=== PATIENT | male | born 1985 | race Caucasian/White ===

== ENCOUNTER 2017-02-13 13:46 | Emergency (ER) | payer MEDICAID ==
[2017-02-13] MEDS ORDERED: Ketorolac 60 MG/2 ML SDV IM ONE (14:07)
--- NOTE | 2017-02-13 14:19 | EDM.PDOC ---
ED HPI GENERAL MEDICAL PROBLEM - General Chief Complaint: Upper Extremity Injury/Pain Stated Complaint: LEFT HAND PAIN Time Seen by Provider: 02/13/17 13:56 Source of Information: Reports: Patient History Limitations: Reports: No Limitations - History of Present Illness INITIAL COMMENTS - FREE TEXT/NARRATIVE: Presents reporting left hand pain. The patient states that on Saturday, February 11, 2017 he pinched his left hand between a lawnmower and a car. Since that time he has had pain on the dorsal hand which increases with movement. He did not take Tylenol, NSAIDs or any other sors-mnu-iqmxdhb medications and did not use ice or elevation. He thought that the pain would improve but it has not and so he comes in seeking further evaluation. left hand Pain Score (Numeric/FACES): 8 - Related Data Allergies Allergy/AdvReac Type Severity Reaction Status Date / Time No Known Allergies Allergy Verified 02/13/17 13:52 Home Meds: Home Meds ARIPiprazole [Aripiprazole] 0 tab PO DAILY 09/10/16 [History] Mirtazapine 0 tab PO DAILY 09/10/16 [History] Amoxicillin 500 mg PO TID 02/13/17 [History] Metronidazole [IJD: metroNIDAZOLE] 500 mg PO TID 02/13/17 [History] Past Medical History - Past Health History Medical/Surgical History: Denies Medical/Surgical History HEENT History: Reports: None Cardiovascular History: Reports: None Respiratory History: Reports: None Gastrointestinal History: Reports: None Genitourinary History: Reports: None Musculoskeletal History: Reports: Other (See Below) Other Musculoskeletal History: knee injury Neurological History: Reports: None Psychiatric History: Reports: ADHD, Bipolar Hematologic History: Reports: None Immunologic History: Reports: None Oncologic (Cancer) History: Reports: None Dermatologic History: Reports: None - Infectious Disease History Infectious Disease History: Reports: None - Past Surgical History Head Surgeries/Procedures: Reports: None HEENT Surgical History: Reports: None Cardiovascular Surgical History: Reports: None Male Surgical History: Reports: None Oncologic Surgical History: Reports: None Social & Family History - Family History Family Medical History: Noncontributory - Tobacco Use Smoking Status *Q: Current Every Day Smoker Years of Tobacco use: 6 Packs/Tins Daily: 1 Used Tobacco, but Quit: No Second Hand Smoke Exposure: No - Alcohol Use Days Per Week of Alcohol Use: 1 Number of Drinks Per Day: 2 Total Drinks Per Week: 2 - Recreational Drug Use Recreational Drug Use: No Review of Systems - Review of Systems Review Of Systems: ROS reveals no pertinent complaints other than HPI. ED EXAM, GENERAL - Physical Exam Exam: See Below Exam Limited By: No Limitations General Appearance: Alert, No Apparent Distress Ears: Normal External Exam Nose: Normal Inspection Throat/Mouth: Normal Inspection Head: Atraumatic, Normocephalic Neck: Normal Inspection Respiratory/Chest: No Respiratory Distress, Lungs Clear Cardiovascular: Normal Peripheral Pulses, Regular Rate, Rhythm GI/Abdominal: Soft Extremities: Normal Inspection, Normal Range of Motion, Other (Left elbow, wrist full ROM without hesitation or limitation. Left dorsal hand with mild swelling but no lesion, erythema, ecchymosis, deformity. Tenderness about the dorsal hand but no crepitus. Full ROM of all digits with some limitation to full flexion due to pain. CMS intact to all digits distally. Radial pulse strong) Neurological: Alert, Oriented, Normal Cognition Psychiatric: Normal Affect, Normal Mood Skin Exam: Warm, Dry, Intact, Normal Color, No Rash Lymphatic: No Adenopathy Course - Vital Signs Last Recorded V/S: Last Vital Signs Temp 37.1 C 02/13/17 13:56 Pulse 99 02/13/17 13:56 Resp 18 02/13/17 13:56 BP 144/79 H 02/13/17 13:56 Pulse Ox 95 02/13/17 13:56 - Orders/Labs/Meds Meds: Medications Discontinued Medications Generic Name Dose Route Start Last Admin Trade Name Freq PRN Reason Stop Dose Admin Ketorolac Tromethamine 60 mg 02/13/17 14:07 02/13/17 14:19 Toradol IM 02/13/17 14:08 60 mg ONETIME ONE Administration Departure - Departure Time of Disposition: 14:49 Disposition: Home, Self-Care 01 Condition: Good Clinical Impression: Hand injury Qualifiers: Encounter type: initial encounter Laterality: left Qualified Code(s): S69.92XA - Unspecified injury of left wrist, hand and finger(s), initial encounter - Discharge Information Referrals: PCP,None [Primary Care Provider] - [facility] [Outside] [facility] [Outside] Forms: ED Department Discharge Additional Instructions: 1. Elevated left hand as much as possible. 2. Ice 20 minutes every 3-4 hours 3. Aleve 2 tabs and and 2 tabs pm or 2-3 ibuprofen every 8 hours as needed for pain. 4. Follow up in primary care.
--- NOTE | 2017-02-13 14:35 | CR ---
EXAMINATION: Left hand HISTORY: Pain COMPARISON: 07/12/2009 TECHNIQUE: 2 views FINDINGS/IMPRESSION: There is no acute osseous abnormality, dislocation, or fracture. Bone mineraliz ation is normal.
[2017-02-13 15:08] VITALS: BP 123/77
== END 2017-02-13 15:05 | disposition home or self-care (01) ==
LOC: MW.ED 13:46
DX: S69.92XA Unspecified injury of left wrist, hand and finger(s), initial encounter (principal); F17.210 Nicotine dependence, cigarettes, uncomplicated; Z79.899 Other long term (current) drug therapy; W31.89XA Contact with other specified machinery, initial encounter
CPT/HCPCS: 73120; 96372; 99283; J1885

== ENCOUNTER 2017-08-09 07:20 | Emergency (ER) | payer BC, MEDICAID, OTHER ==
[2017-08-09] MEDS ORDERED: Ketorolac 60 MG/2 ML SDV IM ONE (07:38)
--- NOTE | 2017-08-09 07:42 | EDM.PDOC ---
ED HPI GENERAL MEDICAL PROBLEM - General Chief Complaint: Upper Extremity Injury/Pain Stated Complaint: SLIPPED AND HURT VANESSA Time Seen by Provider: 08/09/17 07:31 - History of Present Illness INITIAL COMMENTS - FREE TEXT/NARRATIVE: HISTORY AND PHYSICAL: History of present illness: The patient is a 32-year-old male with no stated medical problems and says that he had a slip and fall at work 5 days ago landing on his proximal forearm near the elbow on the right side and he had pain initially but didn't think much of it and continued on with his work. He has not taken more than a few ibuprofen or Tylenol for the pain. He says he was at work recently doing a certain motion and felt a "popping sensation" in the elbow muscle area and the pain seemed to worsen and he feels more muscular rather than bony. He says with certain motions of his arm at his elbow the pain will worsen. He has no neurosensory changes in his hand and no distal wrist hand or finger pain and no proximal shoulder or humerus discomfort. With the original fall he did not hit his head pass out or black out and has no head neck or back pain Review of systems: As per history of present illness and below otherwise all systems reviewed and negative. Past medical history: As per history of present illness and as reviewed below otherwise noncontributory. Surgical history: As per history of present illness and as reviewed below otherwise noncontributory. Social history: No reported history of drug or alcohol abuse. Family history: As per history of present illness and as reviewed below otherwise noncontributory. Physical exam: Gen.: Well-developed well-nourished man who is nontoxic and speaking clearly and easily in the ED. Vital signs are noted by me HEENT: Atraumatic, normocephalic, negative for conjunctival pallor or scleral icterus, mucous membranes moist, throat clear, neck supple, nontender, trachea midline. There are no midline step-offs tenderness defects of the cervical spine Lungs: Clear to auscultation, breath sounds equal bilaterally, chest nontender. Heart: S1S2, regular rate and rhythm no overt murmurs Abdomen: Soft, nondistended, nontender. NABS Pelvis: Deferred Genitourinary: Deferred. Rectal: Deferred. Extremities: Atraumatic appearing throughout with full range of motion without any defects or deficits. On palpation of the right elbow area comfort at the proximal ulna without defects deformities swelling redness or ecchymosis in with certain motions of supination and pronation as well as flexion at the elbow the patient feels discomfort with palpation in the proximal muscle compartment there as well as in the ulnar groove. The legs are, negative for cords or calf pain. Neurovascular unremarkable. Neuro: Awake, alert, oriented. Cranial nerves II through XII unremarkable. Cerebellum unremarkable. Motor and sensory unremarkable throughout. Exam nonfocal. Back: There are no midline step-offs tenderness or defects of the thoracic or lumbar spine no posterior rib tenderness Diagnostics: X-ray left elbow Therapeutics: Toradol Impression: Right elbow injury persistent pain, contusion with musculoskeletal strain of the forearm Definitive disposition and diagnosis as appropriate pending reevaluation and review of above. right arm Pain Score (Numeric/FACES): 8 - Related Data Allergies Allergy/AdvReac Type Severity Reaction Status Date / Time No Known Allergies Allergy Verified 08/09/17 07:29 Home Meds: Home Meds . [No Known Home Meds] 08/09/17 [History] Past Medical History - Past Health History Medical/Surgical History: Denies Medical/Surgical History HEENT History: Reports: None Cardiovascular History: Reports: None Respiratory History: Reports: None Gastrointestinal History: Reports: None Genitourinary History: Reports: None Musculoskeletal History: Reports: Other (See Below) Other Musculoskeletal History: knee injury Neurological History: Reports: None Psychiatric History: Reports: ADHD, Bipolar Hematologic History: Reports: None Immunologic History: Reports: None Oncologic (Cancer) History: Reports: None Dermatologic History: Reports: None - Infectious Disease History Infectious Disease History: Reports: None - Past Surgical History Head Surgeries/Procedures: Reports: None HEENT Surgical History: Reports: None, Other (See Below) Other HEENT Surgeries/Procedures: Jaw pain Cardiovascular Surgical History: Reports: None Male Surgical History: Reports: None Oncologic Surgical History: Reports: None Social & Family History - Family History Family Medical History: Noncontributory - Tobacco Use Smoking Status *Q: Current Every Day Smoker Years of Tobacco use: 16 Packs/Tins Daily: 0.5 Used Tobacco, but Quit: No Second Hand Smoke Exposure: No - Alcohol Use Days Per Week of Alcohol Use: 1 Number of Drinks Per Day: 2 Total Drinks Per Week: 2 - Recreational Drug Use Recreational Drug Use: No Review of Systems - Review of Systems Review Of Systems: ROS reveals no pertinent complaints other than HPI. ED EXAM, GENERAL - Physical Exam Exam: See Below (See dictation) Course - Vital Signs Last Recorded V/S: Last Vital Signs Temp 37.1 C 08/09/17 07:30 Pulse 90 08/09/17 07:30 Resp 18 08/09/17 07:30 BP 136/89 08/09/17 07:30 Pulse Ox 96 08/09/17 07:30 - Orders/Labs/Meds Orders: Active Orders 24 hr Category Date Time Status Elbow Min 3V Rt [CR] Stat Exams 08/09/17 07:38 Taken Meds: Medications Discontinued Medications Generic Name Dose Route Start Last Admin Trade Name Isa PRN Reason Stop Dose Admin Ketorolac Tromethamine 60 mg 08/09/17 07:38 08/09/17 07:52 Toradol IM 08/09/17 07:39 60 mg ONETIME ONE Administration Departure - Departure Time of Disposition: 08:08 Disposition: Home, Self-Care 01 Condition: Good Clinical Impression: Injury of right elbow Qualifiers: Encounter type: initial encounter Qualified Code(s): S59.901A - Unspecified injury of right elbow, initial encounter - Discharge Information Referrals: Dwayne Rodriguez MD [Primary Care Provider] - Forms: ED Department Discharge Additional Instructions: The following information is given to patients seen in the emergency department who are being discharged to home. This information is to outline your options for follow-up care. We provide all patients seen in our emergency department with a follow-up referral. The need for follow-up, as well as the timing and circumstances, are variable depending upon the specifics of your emergency department visit. If you don't have a primary care physician on staff, we will provide you with a referral. We always advise you to contact your personal physician following an emergency department visit to inform them of the circumstance of the visit and for follow-up with them and/or the need for any referrals to a consulting specialist. The emergency department will also refer you to a specialist when appropriate. This referral assures that you have the opportunity for followup care with a specialist. All of these measure are taken in an effort to provide you with optimal care, which includes your followup. Under all circumstances we always encourage you to contact your private physician who remains a resource for coordinating your care. When calling for followup care, please make the office aware that this follow-up is from your recent emergency room visit. If for any reason you are refused follow-up, please contact the [facility] emergency department at and ask to speak to the emergency department charge nurse. [facility] Special[facility]--Orthopedic clinic Professional [address] [address] Try to ice the elbow area and the muscles after work and try to be careful doing motions that involve the elbow and that arm. Use medications as prescribed as well as [id number] Tylenol. Please call and follow-up with our orthopedics department or your provider at [facility] in the next few days for reevaluation and further care and return to ER as needed and as discussed. - My Orders Last 24 Hours: My Active Orders 08/09/17 07:38 Elbow Min 3V Rt [CR] Stat - Assessment/Plan Last 24 Hours: My Active Orders 08/09/17 07:38 Elbow Min 3V Rt [CR] Stat
[2017-08-09 08:41] VITALS: BP 133/96
--- NOTE | 2017-08-09 09:37 | CR ---
EXAM DATE: 08/09/17 PATIENT'S AGE: 32 Patient: TINO HINDS Facility: [place], [place] Site . Site : 1985 Study: XRay Extremity Right ELBOW [id number]/4/2018 7:55:45 AM Ordering Physician: Doctor Cristobal Final Report: INDICATION: TRAUMA/ FELL ON ICE INDICATION: Trauma. Fell on ice. TECHNIQUE: Right elbow, three views. COMPARISON: None FINDINGS: Bones: Alignment is normal. No fractures or bone lesions. Joint spaces: Unremarkable. Soft tissues: Unremarkable. IMPRESSION: There is no fracture identified at the right elbow. Dictated by Brijesh Hall MD @ 08/09/2017 8:00:57 AM Dictated by: Brijesh Hall MD @ 08/09/2017 08:01:07 (Electronic Signature) Report Signed by Proxy. MTDDelicia
== END 2017-08-09 08:18 | disposition home or self-care (01) ==
LOC: MW.ED 07:20
DX: S56.911A Strain of unspecified muscles, fascia and tendons at forearm level, right arm, initial encounter (principal); S50.11XA Contusion of right forearm, initial encounter; S59.901A Unspecified injury of right elbow, initial encounter; F17.210 Nicotine dependence, cigarettes, uncomplicated; W01.0XXA Fall on same level from slipping, tripping and stumbling without subsequent striking against object, initial encounter; Y99.0 Civilian activity done for income or pay
CPT/HCPCS: 73080; 96372; 99283; J1885

== ENCOUNTER 2017-09-21 07:21 | Emergency (ER) | payer BC ==
[2017-09-21] MEDS ORDERED: Ketorolac 30 MG/ML SDV IM ONE (07:32)
--- NOTE | 2017-09-21 07:35 | EDM.PDOC ---
ED HPI GENERAL MEDICAL PROBLEM - General Stated Complaint: LEFT SHOULDER PAIN Time Seen by Provider: 09/21/17 07:28 - History of Present Illness INITIAL COMMENTS - FREE TEXT/NARRATIVE: HISTORY AND PHYSICAL: History of present illness: Patient 32-year-old male presents with concern of intermittent left shoulder pain he's been seen in the past for this discomfort and returns today with an episode Bitts worsened he denies direct trauma or other concern he has not sought follow-up as outpatient with prior episodes. He has had prior ER visits for multiple different complaints including chest and shoulder pain. He denies shortness of breath palpitations nausea vomiting drugs or other concern Review of systems: As per history of present illness and below otherwise all systems reviewed and negative. Past medical history: As per history of present illness and as reviewed below otherwise noncontributory. Surgical history: As per history of present illness and as reviewed below otherwise noncontributory. Social history: No reported history of drug or alcohol abuse. Family history: As per history of present illness and as reviewed below otherwise noncontributory. Physical exam: HEENT: Atraumatic, normocephalic, pupils reactive, negative for conjunctival pallor or scleral icterus, mucous membranes moist, throat clear, neck supple, nontender, trachea midline. Lungs: Clear to auscultation, breath sounds equal bilaterally, chest nontender. Heart: S1S2, regular, negative for clicks, rubs, or JVD. Abdomen: Soft, nondistended, nontender. Negative for masses or hepatosplenomegaly. Negative for costovertebral tenderness. Pelvis: Stable nontender. Genitourinary: Deferred. Rectal: Deferred. Extremities: Left shoulder has limited range of motion secondary pain is no gross deformity no crepitation a point tenderness E medicine neurovascular exam are unremarkable Neuro: Awake, alert, oriented. Cranial nerves II through XII unremarkable. Cerebellum unremarkable. Motor and sensory unremarkable throughout. Exam nonfocal. Diagnostics: X-ray left shoulder Therapeutics: Sling left shoulder Toradol 30 mg IM Impression: 1 left shoulder pain Definitive disposition and diagnosis as appropriate pending reevaluation and review of above. - Related Data Allergies Allergy/AdvReac Type Severity Reaction Status Date / Time No Known Allergies Allergy Verified 08/09/17 07:29 Home Meds: Home Meds . [No Known Home Meds] 01/04/18 [History] Past Medical History - Past Health History Medical/Surgical History: Denies Medical/Surgical History HEENT History: Reports: None Cardiovascular History: Reports: None Respiratory History: Reports: None Gastrointestinal History: Reports: None Genitourinary History: Reports: None Musculoskeletal History: Reports: Other (See Below) Other Musculoskeletal History: knee injury Neurological History: Reports: None Psychiatric History: Reports: ADHD, Bipolar Hematologic History: Reports: None Immunologic History: Reports: None Oncologic (Cancer) History: Reports: None Dermatologic History: Reports: None - Infectious Disease History Infectious Disease History: Reports: None - Past Surgical History Head Surgeries/Procedures: Reports: None HEENT Surgical History: Reports: None, Other (See Below) Other HEENT Surgeries/Procedures: Jaw pain Cardiovascular Surgical History: Reports: None Male Surgical History: Reports: None Oncologic Surgical History: Reports: None Social & Family History - Family History Family Medical History: Noncontributory - Tobacco Use Smoking Status *Q: Current Every Day Smoker Years of Tobacco use: 16 Packs/Tins Daily: 0.5 Used Tobacco, but Quit: No Second Hand Smoke Exposure: No - Alcohol Use Days Per Week of Alcohol Use: 1 Number of Drinks Per Day: 2 Total Drinks Per Week: 2 - Recreational Drug Use Recreational Drug Use: No ED ROS GENERAL - Review of Systems Review Of Systems: ROS reveals no pertinent complaints other than HPI. ED EXAM, GENERAL - Physical Exam Exam: See Below (See dictation) Course - Orders/Labs/Meds Orders: Active Orders 24 hr Category Date Time Status Shoulder Comp Lt [CR] Stat Exams 09/21/17 07:32 Ordered Ketorolac [Toradol] Med 09/21/17 07:32 Once 30 mg IM ONETIME ONE Departure - Departure Time of Disposition: 07:34 Disposition: Home, Self-Care 01 Condition: Good Clinical Impression: Shoulder pain - Discharge Information Referrals: Dwayne Rodriguez MD [Primary Care Provider] - Additional Instructions: The following information is given to patients seen in the emergency department who are being discharged to home. This information is to outline your options for follow-up care. We provide all patients seen in our emergency department with a follow-up referral. The need for follow-up, as well as the timing and circumstances, are variable depending upon the specifics of your emergency department visit. If you don't have a primary care physician on staff, we will provide you with a referral. We always advise you to contact your personal physician following an emergency department visit to inform them of the circumstance of the visit and for follow-up with them and/or the need for any referrals to a consulting specialist. The emergency department will also refer you to a specialist when appropriate. This referral assures that you have the opportunity for followup care with a specialist. All of these measure are taken in an effort to provide you with optimal care, which includes your followup. Under all circumstances we always encourage you to contact your private physician who remains a resource for coordinating your care. When calling for followup care, please make the office aware that this follow-up is from your recent emergency room visit. If for any reason you are refused follow-up, please contact the [facility] emergency department at and asked to speak to the emergency department charge nurse. [facility] Specialty Care - Orthopedic Clinic [address], [address] [place] [address] I'll schedule routine appointment with orthopedic clinic above Ultram as prescribed sling as directed return as needed as discussed - My Orders Last 24 Hours: My Active Orders 09/21/17 07:32 Shoulder Comp Lt [CR] Stat Ketorolac [Toradol] 30 mg IM ONETIME ONE - Assessment/Plan Last 24 Hours: My Active Orders 09/21/17 07:32 Shoulder Comp Lt [CR] Stat Ketorolac [Toradol] 30 mg IM ONETIME ONE
[2017-09-21 07:40] VITALS: BP 134/86
--- NOTE | 2017-09-21 17:12 | CR ---
EXAM DATE: 09/21/17 PATIENT'S AGE: 32 Patient: TINO HINDS Facility: [place], [place] Site . Site : 1985 Study: XRay Shoulder Left [id number]/16/2018 8:26:53 AM Ordering Physician: Jesusita Saul Final Report: HISTORY: Pain. FINDINGS: Three views of the left shoulder demonstrate normal alignment. There is maintenance of the AC and glenohumeral joints. No soft tissue calcification, fracture or dislocation. IMPRESSION: No bony abnormality within the left shoulder. Dictated by Yumiko Redding MD @ 09/21/2017 8:41:05 AM Dictated by: Yumiok Redding MD @ 09/21/2017 08:41:10 (Electronic Signature) Report Signed by Proxy. [facility] CENTERDelicia
== END 2017-09-21 09:13 | disposition home or self-care (01) ==
LOC: MW.ED 07:21
DX: M25.512 Pain in left shoulder (principal); F17.210 Nicotine dependence, cigarettes, uncomplicated
CPT/HCPCS: 73030; 96372; 99283; J1885

== ENCOUNTER 2017-12-19 13:22 | Emergency (ER) | payer BC ==
--- NOTE | 2017-12-19 13:28 | EDM.PDOC ---
ED HPI GENERAL MEDICAL PROBLEM - General Chief Complaint: Upper Extremity Injury/Pain Stated Complaint: RT ARM HURTS Time Seen by Provider: 12/19/17 13:23 Source of Information: Reports: Patient History Limitations: Reports: No Limitations - History of Present Illness INITIAL COMMENTS - FREE TEXT/NARRATIVE: HISTORY AND PHYSICAL: History of present illness: Patient is a 32-year-old male who presents to the emergency room with complaints of right wrist and all forearm pain since yesterday. He states he was lifting multiple boxes yesterday and has progressively had increased pain and difficulty grasping since that time. He denies any trauma, injury or falls. No previous problems with his right upper extremity. Denies any numbness or tingling to the affected extremity. Review of systems: As per history of present illness and below otherwise all systems reviewed and negative. Past medical history: As per history of present illness and as reviewed below otherwise noncontributory. Surgical history: As per history of present illness and as reviewed below otherwise noncontributory. Social history: No reported history of drug or alcohol abuse. Family history: As per history of present illness and as reviewed below otherwise noncontributory. Physical exam: General: Well-developed and well-nourished 32-year-old male. Alert and oriented. Nontoxic appearing and in no acute distress. HEENT: Atraumatic, normocephalic, pupils equal and reactive bilaterally, negative for conjunctival pallor or scleral icterus, mucous membranes moist, throat clear, neck supple, nontender, trachea midline. No drooling or trismus noted. No meningeal signs Lungs: Clear to auscultation, breath sounds equal bilaterally, chest nontender. Heart: S1S2, regular rate and rhythm without overt murmur Abdomen: Soft, nondistended, nontender. Negative for masses or hepatosplenomegaly. Negative for costovertebral tenderness. Pelvis: Stable nontender. Genitourinary: Deferred. Rectal: Deferred. Skin: Skin is soiled with work materials. Otherwise intact, warm, dry. No lesions or rashes noted. Extremities: Moves all extremities per self without difficulty or deficits, weekend grasp noted to right hand. He is able to clench his fist but states it is too painful to close it tightly. No tenderness with palpation of the right hand, wrist, forearm or elbow. Strong radial pulse. Capillary refill less than 3 seconds. Neurovascular unremarkable. Neuro: Awake, alert, oriented. Cranial nerves II through XII unremarkable. Cerebellum unremarkable. Motor and sensory unremarkable throughout. Exam nonfocal. Notes: Denies any injury or trauma. Patient states he has difficulty holding a hammer. It sounds like he has possibly an overuse syndrome, as he is frequently turning dials, rolling pipes, and hammering. We'll x-ray the forearm, as the distribution technician states that she can get the wrist and elbow in this image. X-ray shows no effusion, dislocation or fractures. Information was shared with the patient. We discussed the limitations of x-ray and the need for follow-up. We' ll provide patient with a cock-up wrist splint. Encouraged him to follow-up with the orthopedic provider in the next couple days. Supportive care measures reviewed. He voices understanding and is agreeable to plan of care. Denies any further questions at this time Limitied amount of Diclofenac prescribed. Diagnostics: Xray Therapeutics: Ice, cock-up wrist splint Impression: Right wrist pain Plan: 1. Rest, ice, elevate the affected extremity. Please wear the splint for the next several days for comfort. 2. Tylenol and/or Ibuprofen as needed for pain management. 3. Follow up with orthopedics in the next 1-2 days. Return to the ED as needed and as discussed. Definitive disposition and diagnosis as appropriate pending reevaluation and review of above. Duration: Day(s): Location: Reports: Upper Extremity, Right right arm Pain Score (Numeric/FACES): 5 - Related Data Allergies Allergy/AdvReac Type Severity Reaction Status Date / Time No Known Allergies Allergy Verified 12/19/17 13:30 Home Meds: Home Meds Acetaminophen [Acetaminophen Extra Strength] 1,000 mg PO ASDIRECTED PRN [History] Ibuprofen 600 mg PO ASDIRECTED PRN 09/21/17 [History] Past Medical History - Past Health History Medical/Surgical History: Denies Medical/Surgical History HEENT History: Reports: None Cardiovascular History: Reports: None Respiratory History: Reports: None Gastrointestinal History: Reports: None Genitourinary History: Reports: None Musculoskeletal History: Reports: Other (See Below) Other Musculoskeletal History: knee injury Neurological History: Reports: None Psychiatric History: Reports: ADHD, Bipolar Hematologic History: Reports: None Immunologic History: Reports: None Oncologic (Cancer) History: Reports: None Dermatologic History: Reports: None - Infectious Disease History Infectious Disease History: Reports: None - Past Surgical History Head Surgeries/Procedures: Reports: None HEENT Surgical History: Reports: None, Other (See Below) Other HEENT Surgeries/Procedures: Jaw pain Cardiovascular Surgical History: Reports: None Male Surgical History: Reports: None Oncologic Surgical History: Reports: None Social & Family History - Family History Family Medical History: Noncontributory - Caffeine Use Caffeine Use: Reports: Energy Drinks Review of Systems - Review of Systems Review Of Systems: ROS reveals no pertinent complaints other than HPI. (See dictation) ED EXAM, GENERAL - Physical Exam Exam: See Below (See dictation) Course - Vital Signs Last Recorded V/S: Last Vital Signs Temp 97.6 F 12/19/17 13:31 Pulse 99 12/19/17 13:31 Resp 18 12/19/17 13:31 BP 143/83 H 12/19/17 13:31 Pulse Ox 94 L 12/19/17 13:31 Departure - Departure Time of Disposition: 14:25 Disposition: Home, Self-Care 01 Clinical Impression: Right wrist pain - Discharge Information Instructions: Wrist Pain, Adult, [id number] Referrals: PCP,None [Primary Care Provider] - Forms: ED Department Discharge Additional Instructions: The following information is given to patients seen in the emergency department who are being discharged to home. This information is to outline your options for follow-up care. We provide all patients seen in our emergency department with a follow-up referral. The need for follow-up, as well as the timing and circumstances, are variable depending upon the specifics of your emergency department visit. If you don't have a primary care physician on staff, we will provide you with a referral. We always advise you to contact your personal physician following an emergency department visit to inform them of the circumstance of the visit and for follow-up with them and/or the need for any referrals to a consulting specialist. The emergency department will also refer you to a specialist when appropriate. This referral assures that you have the opportunity for follow-up care with a specialist. All of these measure are taken in an effort to provide you with optimal care, which includes your follow-up. Under all circumstances we always encourage you to contact your private physician who remains a resource for coordinating your care. When calling for follow-up care, please make the office aware that this follow-up is from your recent emergency room visit. If for any reason you are refused follow-up, please contact the [facility] Emergency Department at and asked to speak to the emergency department charge nurse. [facility] Primary Care [address], [place] [address] [facility] Special[facility] - [facility] Professional Building [address] [place] [address], [address] [place] [address] 1. Rest, ice, elevate the affected extremity. Please wear the splint for the next several days for comfort. 2. Tylenol and/or Ibuprofen as needed for pain management. 3. Follow up with orthopedics in the next 1-2 days. Return to the ED as needed and as discussed.
--- NOTE | 2017-12-19 14:14 | CR ---
EXAMINATION: Right forearm HISTORY: Pain COMPARISON: None TECHNIQUE: 2 views FINDINGS/IMPRESSION: There is no acute osseous abnormality, elbow joint effusion, dislocation, or fra cture. Bone mineralization and joint spaces appear normal. The radial carpal and radiocapitellar alig nments are preserved.
[2017-12-19 14:38] VITALS: BP 138/90
== END 2017-12-19 14:36 | disposition home or self-care (01) ==
LOC: MW.ED 13:22
DX: M25.531 Pain in right wrist (principal)
CPT/HCPCS: 73090-26-RT; 73090-RT; 99283

== ENCOUNTER 2018-01-16 09:39 | Emergency (ER) | payer BC ==
[2018-01-16] MEDS ORDERED: Aspirin 81 MG Tab.Chew PO ONE (09:44)
--- NOTE | 2018-01-16 09:46 | EDM.PDOC ---
ED HPI GENERAL MEDICAL PROBLEM - General Chief Complaint: Chest Pain Stated Complaint: CHEST PAIN Time Seen by Provider: 01/16/18 09:45 Source of Information: Reports: Patient - History of Present Illness INITIAL COMMENTS - FREE TEXT/NARRATIVE: HISTORY AND PHYSICAL: History of present illness: [Patient presents with chest wall pain along left sternal border as well as involving left pectoralis major can reproduce symptoms with palpation along the border as well as major and minor pectoralis full extension of his arm reproduces symptoms on the left pain is 4 out of 10 worse with deep breaths and moving his left arm, he works in a pipe yard moving heavy pipe likely contributes It is noted he is been in several times over the last 6 months for similar symptoms He hasassociated diaphoresis shortness of breath no radiation to neck or jaw no fever nausea vomiting chills sweats no shortness breath headache dizziness palpitation no bowel or urine symptoms ] Review of systems: As per history of present illness and below otherwise all systems reviewed and negative. Past medical history: As per history of present illness and as reviewed below otherwise noncontributory. Surgical history: As per history of present illness and as reviewed below otherwise noncontributory. Social history: No reported history of drug or alcohol abuse. Family history: As per history of present illness and as reviewed below otherwise noncontributory. Physical exam: HEENT: Atraumatic, normocephalic, pupils reactive, negative for conjunctival pallor or scleral icterus, mucous membranes moist, throat clear, neck supple, nontender, trachea midline. Lungs: Clear to auscultation, breath sounds equal bilaterally, chest nontender. Heart: S1S2, regular, negative for clicks, rubs, or JVD. Abdomen: Soft, nondistended, nontender. Negative for masses or hepatosplenomegaly. Negative for costovertebral tenderness. Pelvis: Stable nontender. Genitourinary: Deferred. Rectal: Deferred. Extremities: Atraumatic, negative for cords or calf pain. Neurovascular unremarkable. Neuro: Awake, alert, oriented. Cranial nerves II through XII unremarkable. Cerebellum unremarkable. Motor and sensory unremarkable throughout. Exam nonfocal. Diagnostics: [CBC CMP troponin lipase EKG Chest 1 view ] Therapeutics: [ aspirin 324 mg chewable ]Proton X Rest ice ibuprofen Follow-up with primary care Impression: [ Chest wall pain ] Definitive disposition and diagnosis as appropriate pending reevaluation and review of above. Chest Pain Score (Numeric/FACES): 9 - Related Data Allergies Allergy/AdvReac Type Severity Reaction Status Date / Time No Known Allergies Allergy Verified 01/16/18 09:45 Home Meds: Home Meds Acetaminophen [Acetaminophen Extra Strength] 1,000 mg PO ASDIRECTED PRN [History] Ibuprofen 600 mg PO ASDIRECTED PRN 09/21/17 [History] Past Medical History - Past Health History Medical/Surgical History: Denies Medical/Surgical History HEENT History: Reports: None Cardiovascular History: Reports: None Respiratory History: Reports: None Gastrointestinal History: Reports: None Genitourinary History: Reports: None Musculoskeletal History: Reports: Other (See Below) Other Musculoskeletal History: knee injury Neurological History: Reports: None Psychiatric History: Reports: ADHD, Bipolar Endocrine/Metabolic History: Reports: None Hematologic History: Reports: None Immunologic History: Reports: None Oncologic (Cancer) History: Reports: None Dermatologic History: Reports: None - Infectious Disease History Infectious Disease History: Reports: None - Past Surgical History Head Surgeries/Procedures: Reports: None HEENT Surgical History: Reports: None, Other (See Below) Other HEENT Surgeries/Procedures: Jaw pain Cardiovascular Surgical History: Reports: None Male Surgical History: Reports: None Oncologic Surgical History: Reports: None Social & Family History - Family History Family Medical History: Noncontributory - Caffeine Use Caffeine Use: Reports: Energy Drinks ED ROS GENERAL - Review of Systems Review Of Systems: See Below ED EXAM, GENERAL - Physical Exam Exam: See Below Course - Vital Signs Last Recorded V/S: Last Vital Signs Temp 98.5 F 01/16/18 09:46 Pulse 78 01/16/18 09:46 Resp 16 01/16/18 09:46 BP 132/86 01/16/18 09:46 Pulse Ox 97 01/16/18 09:46 - Orders/Labs/Meds Orders: Active Orders 24 hr Category Date Time Status EKG Documentation Completion [RC] STAT Care 01/16/18 09:45 Active UA W/MICROSCOPIC [URIN] Stat Lab 01/16/18 09:57 Ordered Labs: Laboratory Tests 01/16/18 01/16/18 01/16/18 Range/Units 09:48 09:48 09:57 WBC 7.54 (4.0-11.0) K/uL RBC 5.38 (4.50-5.90) M/uL Hgb 16.4 (13.0-17.0) g/dL Hct 46.6 (38.0-50.0) % MCV 86.6 (80.0-98.0) fL MCH 30.5 (27.0-32.0) pg MCHC 35.2 (31.0-37.0) g/dL RDW Std Deviation 41.7 (28.0-62.0) fl RDW Coeff of Brinda 13 (11.0-15.0) % Plt Count 234 (150-400) K/uL MPV 10.50 (7.40-12.00) fL Neut % (Auto) 54.8 (48.0-80.0) % Lymph % (Auto) 30.4 (16.0-40.0) % [place] % (Auto) 12.9 (0.0-15.0) % Eos % (Auto) 1.5 (0.0-7.0) % Baso % (Auto) 0.4 (0.0-1.5) % Neut # (Auto) 4.1 (1.4-5.7) K/uL Lymph # (Auto) 2.3 (0.6-2.4) K/uL [place] # (Auto) 1.0 H (0.0-0.8) K/uL Eos # (Auto) 0.1 (0.0-0.7) K/uL Baso # (Auto) 0.0 (0.0-0.1) K/uL Nucleated RBC % 0.0 /100WBC Nucleated RBCs # 0 K/uL Sodium 137 (136-148) mmol/L Potassium 4.1 (3.5-5.1) mmol/L Chloride 104 (98-107) mmol/L Carbon Dioxide 26.2 (21.0-32.0) mmol/L BUN 15 (7.0-18.0) mg/dL Creatinine 1.2 (0.8-1.3) mg/dL Est Cr Clr Drug Dosing 94.13 mL/min Estimated GFR (MDRD) > 60.0 ml/min Glucose 105 (74-106) mg/dL Calcium 9.6 (8.5-10.1) mg/dL Total Bilirubin 0.3 (0.2-1.0) mg/dL AST 34 (15-37) IU/L ALT 47 (14-63) IU/L Alkaline Phosphatase 77 (46-116) U/L Total Protein 7.9 (6.4-8.2) g/dL Albumin 4.3 (3.4-5.0) g/dL Globulin 3.6 H (2.0-3.5) g/dL Albumin/Globulin Ratio 1.2 L (1.3-2.8) Lipase 96 (73-393) U/L Urine Color YELLOW Urine Appearance CLEAR Urine pH 5.5 (5.0-8.0) Ur Specific [place] 1.020 (1.001-1.035) Urine Protein NEGATIVE (NEGATIVE) mg/dL Urine Glucose (UA) NEGATIVE (NEGATIVE) mg/dL Urine Ketones NEGATIVE (NEGATIVE) mg/dL Urine Occult Blood NEGATIVE (NEGATIVE) Urine Nitrite NEGATIVE (NEGATIVE) Urine Bilirubin NEGATIVE (NEGATIVE) Urine Urobilinogen 0.2 (<2.0) EU/dL Ur Leukocyte Esterase NEGATIVE (NEGATIVE) Urine RBC 0-2 (0-2/HPF) Urine WBC 0-2 (0-5/HPF) Ur Epithelial Cells RARE (NONE-FEW) Urine Bacteria RARE (NEGATIVE) Meds: Medications Discontinued Medications Generic Name Dose Route Start Last Admin Trade Name Isa PRN Reason Stop Dose Admin Aspirin 324 mg 01/16/18 09:44 01/16/18 10:01 Aspirin PO 01/16/18 09:45 324 mg ONETIME ONE Administration Pantoprazole Sodium 80 mg 01/16/18 10:19 Protonix Iv IVPUSH 01/16/18 10:20 .BOLUS ONE Departure - Departure Time of Disposition: 10:41 Disposition: Home, Self-Care 01 Condition: Good Clinical Impression: Chest wall pain, Muscle spasm - Discharge Information Referrals: PCP,None [Primary Care Provider] - Forms: ED Department Discharge Additional Instructions: Rest Ice 20 minute intervals 3 times daily Ibuprofen 400 mg 3 times daily 7-10 days Follow-up with primary care in approximately 2 weeks [facility] - Primary Care [address] [place] [id number] The following information is given to patients seen in the emergency department who are being discharged to home. This information is to outline your options for follow-up care. We provide all patients seen in our emergency department with a follow-up referral. The need for follow-up, as well as the timing and circumstances, are variable depending upon the specifics of your emergency department visit. If you don't have a primary care physician on staff, we will provide you with a referral. We always advise you to contact your personal physician following an emergency department visit to inform them of the circumstance of the visit and for follow-up with them and/or the need for any referrals to a consulting specialist. The emergency department will also refer you to a specialist when appropriate. This referral assures that you have the opportunity for follow-up care with a specialist. All of these measure are taken in an effort to provide you with optimal care, which includes your follow-up. Under all circumstances we always encourage you to contact your private physician who remains a resource for coordinating your care. When calling for follow-up care, please make the office aware that this follow-up is from your recent emergency room visit. If for any reason you are refused follow-up, please contact the [facility] emergency department at and asked to speak to the emergency department charge nurse. - My Orders Last 24 Hours: My Active Orders 01/16/18 09:45 EKG Documentation Completion [RC] STAT 01/16/18 09:57 UA W/MICROSCOPIC [URIN] Stat - Assessment/Plan Last 24 Hours: My Active Orders 01/16/18 09:45 EKG Documentation Completion [RC] STAT 01/16/18 09:57 UA W/MICROSCOPIC [URIN] Stat
[2018-01-16] MEDS ORDERED: Pantoprazole 40 MG Vial IVPUSH ONE (10:19)
--- NOTE | 2018-01-16 10:23 | CR ---
EXAMINATION: Portable chest radiograph. HISTORY: Shortness of breath. FINDINGS: The trachea is midline. The cardiomediastinal silhouette is within normal limits. No pulmonary infilt rates, effusions or pneumothorax. Osseous structures appear unremarkable. IMPRESSION: No acute cardiopulmonary process.
[2018-01-16 10:24] LABS: CHLORIDE,CL 104 mmol/L (98-107); SODIUM,NA 137 mmol/L (136-148)
[2018-01-16 11:35] VITALS: BP 134/91
== END 2018-01-16 11:02 | disposition home or self-care (01) ==
LOC: MW.ED 09:39
DX: R07.89 Other chest pain (principal); M62.838 Other muscle spasm
CPT/HCPCS: 36415; 71045; 80053; 81001; 83690; 85025; 96374; 99285; A9270; C9113; 99283

== ENCOUNTER 2018-11-10 12:14 | Emergency (ER) | payer BC ==
[2018-11-10 12:27] VITALS: BP 160/98
[2018-11-10] MEDS ORDERED: Cyclobenzaprine 10 MG Tab PO ONE (13:27)
[2018-11-10] MEDS ORDERED: traMADol 50 MG Tab PO ONE (13:27)
--- NOTE | 2018-11-10 13:35 | EDM.PDOC ---
ED HPI GENERAL MEDICAL PROBLEM - General Chief Complaint: Genitourinary Problem Stated Complaint: UNABLE TO USE THE BATHROOM Time Seen by Provider: 11/10/18 12:33 Source of Information: Reports: Patient History Limitations: Reports: No Limitations - History of Present Illness INITIAL COMMENTS - FREE TEXT/NARRATIVE: History of present illness: []Patient has had low back pain radiating to his right hip for 4 days. He is having difficulty urinating and having bowel movements but is not incontinent. Patient is ambulatory. Patient is followed by Dr. Rodriguez but has not followed up. Denies any acute trauma or injury that may have caused this pain Review of systems: As per history of present illness and below otherwise all systems reviewed and negative. Past medical history: As per history of present illness and as reviewed below otherwise noncontributory. Surgical history: As per history of present illness and as reviewed below otherwise noncontributory. Social history: No reported history of drug or alcohol abuse. Family history: As per history of present illness and as reviewed below otherwise noncontributory. Physical exam: General: Well developed, well nourished in NAD HEENT: Atraumatic, normocephalic, pupils reactive, negative for conjunctival pallor or scleral icterus, mucous membranes moist, throat clear, neck supple, nontender, trachea midline. Lungs: Clear to auscultation, breath sounds equal bilaterally, chest nontender. Heart: S1S2, regular, negative for clicks, rubs, or JVD. Abdomen: NABS, Soft, nondistended, nontender. Negative for masses or hepatosplenomegaly. Negative for costovertebral tenderness. Pelvis: Stable nontender. Genitourinary: Deferred. Rectal: Deferred. Extremities: Atraumatic, negative for cords or calf pain. Neurovascular unremarkable. Neuro: Awake, alert, oriented. Cranial nerves II through XII unremarkable. Cerebellum unremarkable. Motor and sensory unremarkable throughout. Exam nonfocal. Straight leg raise negative Skin:warm and dry Diagnostics: none Therapeutics: Tramadol, norflex ED Course: Stable Impression: Acute back pain with right sciatica Prescriptions: Tramadol, Flexeril Plan: Take meds as directed, follow up with your primary care physician, return to ER if symptoms worsen or change. Definitive disposition and diagnosis as appropriate pending reevaluation and review of above. Rectal Pain Score (Numeric/FACES): 10 - Related Data Allergies Allergy/AdvReac Type Severity Reaction Status Date / Time No Known Allergies Allergy Verified 11/10/18 12:29 Home Meds: Home Meds Cyclobenzaprine [Flexeril] 10 mg PO BID PRN #12 tab 11/10/18 [Rx] Divalproex Sodium 500 mg PO BID 11/10/18 [History] traMADol HCl [Tramadol HCl] 50 mg PO Q6H PRN #16 tablet 11/10/18 [Rx] Past Medical History - Past Health History Medical/Surgical History: Denies Medical/Surgical History HEENT History: Reports: None Cardiovascular History: Reports: None Respiratory History: Reports: None Gastrointestinal History: Reports: None Genitourinary History: Reports: None Musculoskeletal History: Reports: Other (See Below) Other Musculoskeletal History: knee injury Neurological History: Reports: None Psychiatric History: Reports: ADHD, Bipolar Endocrine/Metabolic History: Reports: None Hematologic History: Reports: None Immunologic History: Reports: None Oncologic (Cancer) History: Reports: None Dermatologic History: Reports: None - Infectious Disease History Infectious Disease History: Reports: None - Past Surgical History Head Surgeries/Procedures: Reports: None HEENT Surgical History: Reports: None, Other (See Below) Other HEENT Surgeries/Procedures: Jaw pain Cardiovascular Surgical History: Reports: None Male Surgical History: Reports: None Oncologic Surgical History: Reports: None Social & Family History - Family History Family Medical History: Noncontributory - Tobacco Use Smoking Status *Q: Current Every Day Smoker Years of Tobacco use: 17 Packs/Tins Daily: 0.5 - Caffeine Use Caffeine Use: Reports: Coffee, Soda, Tea - Recreational Drug Use Recreational Drug Use: No ED ROS GENERAL - Review of Systems Review Of Systems: ROS reveals no pertinent complaints other than HPI. ED EXAM,LOWER BACK PAIN/INJURY - Physical Exam Exam: See Below (See history of present illness) Course - Vital Signs Last Recorded V/S: Last Vital Signs Temp 97.6 F 11/10/18 12:26 Pulse 109 H 11/10/18 12:26 Resp 18 11/10/18 12:26 BP 160/98 H 11/10/18 12:26 Pulse Ox 98 11/10/18 12:26 - Orders/Labs/Meds Orders: Active Orders 24 hr Category Date Time Status CULTURE URINE [RM] Routine Lab 11/10/18 12:56 Received Labs: Laboratory Tests 11/10/18 Range/Units 12:56 Urine Color YELLOW Urine Appearance CLEAR Urine pH 6.0 (5.0-8.0) Ur Specific [place] 1.025 (1.001-1.035) Urine Protein NEGATIVE (NEGATIVE) mg/dL Urine Glucose (UA) NEGATIVE (NEGATIVE) mg/dL Urine Ketones 15 H (NEGATIVE) mg/dL Urine Occult Blood NEGATIVE (NEGATIVE) Urine Nitrite NEGATIVE (NEGATIVE) Urine Bilirubin NEGATIVE (NEGATIVE) Urine Urobilinogen 0.2 (<2.0) EU/dL Ur Leukocyte Esterase NEGATIVE (NEGATIVE) Urine RBC 2-4 (0-2/HPF) Urine WBC 1-3 (0-5/HPF) Ur Epithelial Cells FEW (NONE-FEW) Urine Bacteria FEW (NEGATIVE) Meds: Medications Discontinued Medications Generic Name Dose Route Start Last Admin Trade Name Freq PRN Reason Stop Dose Admin Orphenadrine Citrate 60 mg 11/10/18 13:30 11/10/18 13:49 Norflex IM 60 mg Q12H LI Administration Tramadol HCl 100 mg 11/10/18 13:27 11/10/18 13:50 Ultram PO 11/10/18 13:28 100 mg ONETIME ONE Administration Departure - Departure Time of Disposition: 14:10 Disposition: Home, Self-Care 01 Condition: Good Clinical Impression: Low back pain with sciatica Qualifiers: Chronicity: acute Back pain laterality: right Sciatica laterality: sciatica of right side Qualified Code(s): M54.41 - Lumbago with sciatica, right side - Discharge Information *PRESCRIPTION DRUG MONITORING PROGRAM REVIEWED*: No *COPY OF PRESCRIPTION DRUG MONITORING REPORT IN PATIENT TORO: No Prescriptions: Cyclobenzaprine [Flexeril] 10 mg PO BID PRN #12 tab PRN Reason: Pain traMADol HCl [Tramadol HCl] 50 mg PO Q6H PRN #16 tablet PRN Reason: Pain Instructions: Sciatica Referrals: PCP,Unknown [Primary Care Provider] - Forms: ED Department Discharge - My Orders Last 24 Hours: My Active Orders 11/10/18 12:56 CULTURE URINE [RM] Routine - Assessment/Plan Last 24 Hours: My Active Orders 11/10/18 12:56 CULTURE URINE [RM] Routine
== END 2018-11-10 14:06 | disposition home or self-care (01) ==
LOC: MW.ED 12:14
DX: M54.41 Lumbago with sciatica, right side (principal); F17.210 Nicotine dependence, cigarettes, uncomplicated; Z79.899 Other long term (current) drug therapy
CPT/HCPCS: 81001; 87086; 96372; 99283; A9270; J2360

== ENCOUNTER 2019-04-23 15:25 | Emergency (ER) | payer BC ==
--- NOTE | 2019-04-23 15:33 | EDM.PDOC ---
ED HPI GENERAL MEDICAL PROBLEM - General Chief Complaint: Laceration Stated Complaint: CUT ON LEFT HAND Time Seen by Provider: 04/23/19 15:32 Source of Information: Reports: Patient History Limitations: Reports: No Limitations - History of Present Illness INITIAL COMMENTS - FREE TEXT/NARRATIVE: HISTORY AND PHYSICAL: History of present illness: Patient is a 34-year-old male presents to the ED with complaint of finger injury. He states he was cutting a piece of wood with a chop saw and it got caught somehow cutting his finger. He denies proximal pain. He is not UTD on tetanus. Review of systems: As per history of present illness and below otherwise all systems reviewed and negative. Past medical history: As per history of present illness and as reviewed below otherwise noncontributory. Surgical history: As per history of present illness and as reviewed below otherwise noncontributory. Social history: No reported history of drug or alcohol abuse. Family history: As per history of present illness and as reviewed below otherwise noncontributory. Physical exam: General: Patient sitting comfortably in no acute distress and nontoxic appearing HEENT: Atraumatic, normocephalic, pupils reactive, negative for conjunctival pallor or scleral icterus, mucous membranes moist, throat clear, neck supple, nontender, trachea midline. No meningeal signs. Lungs: Clear to auscultation, breath sounds equal bilaterally, chest nontender. Heart: S1S2, regular, negative for clicks, rubs, or overt murmur. Abdomen: Soft, nondistended, nontender. Negative for masses or hepatosplenomegaly. Negative for costovertebral tenderness. No rigidity, rebound , guarding. Pelvis: Stable nontender. Genitourinary: Deferred. Rectal: Deferred. Extremities: There is a superficial 0.5cm laceration to the distal pad of the left 2nd digit with involvement of the distal nail. negative for cords or calf pain. Neurovascular unremarkable. Neuro: Awake, alert, oriented. Cranial nerves II through XII unremarkable. Cerebellum unremarkable. Motor and sensory unremarkable throughout. Exam nonfocal. Notes: Diagnostics: x-ray left second digit Therapeutics: [] Prescriptions: Impression: Finger injury Plan: Ice, elevate and alternate tylenol and motrin as needed Follow up with primary care provider Return to ED as needed as discussed Definitive disposition and diagnosis as appropriate pending reevaluation and review of above. Left Finger-Index Pain Score (Numeric/FACES): 10 - Related Data Allergies Allergy/AdvReac Type Severity Reaction Status Date / Time No Known Allergies Allergy Verified 04/23/19 15:44 Home Meds: Home Meds Divalproex Sodium 500 mg PO BID 11/10/18 [History] Past Medical History - Past Health History Medical/Surgical History: Denies Medical/Surgical History HEENT History: Reports: None Cardiovascular History: Reports: None Respiratory History: Reports: None Gastrointestinal History: Reports: None Genitourinary History: Reports: None Musculoskeletal History: Reports: Other (See Below) Other Musculoskeletal History: knee injury Neurological History: Reports: None Psychiatric History: Reports: ADHD, Bipolar Endocrine/Metabolic History: Reports: None Hematologic History: Reports: None Immunologic History: Reports: None Oncologic (Cancer) History: Reports: None Dermatologic History: Reports: None - Infectious Disease History Infectious Disease History: Reports: None - Past Surgical History Head Surgeries/Procedures: Reports: None HEENT Surgical History: Reports: None, Other (See Below) Other HEENT Surgeries/Procedures: Jaw pain Cardiovascular Surgical History: Reports: None Male Surgical History: Reports: None Oncologic Surgical History: Reports: None Social & Family History - Family History Family Medical History: Noncontributory - Caffeine Use Caffeine Use: Reports: Coffee, Soda, Tea ED ROS GENERAL - Review of Systems Review Of Systems: ROS reveals no pertinent complaints other than HPI. ED EXAM, SKIN/RASH Exam: See Below (See dictation) Course - Vital Signs Last Recorded V/S: Last Vital Signs Temp 97.3 F 04/23/19 15:44 Pulse 83 04/23/19 15:44 Resp 18 04/23/19 15:44 BP 141/92 H 04/23/19 15:44 Pulse Ox 97 04/23/19 15:44 - Orders/Labs/Meds Orders: Active Orders 24 hr Category Date Time Status Vaccines to be Administered [RC] PER UNIT ROUTINE Care 04/23/19 15:37 Active Meds: Medications Discontinued Medications Generic Name Dose Route Start Last Admin Trade Name Freq PRN Reason Stop Dose Admin Bacitracin 1 dose 04/23/19 16:31 Bacitracin Oint 1 Gm TOP 04/23/19 16:32 ONETIME ONE Diphtheria/Tetanus/Acell Pertussis 0.5 ml 04/23/19 15:37 04/23/19 16:13 Adacel IM 04/23/19 15:38 0.5 ml .ONCE ONE Administration Lidocaine HCl 5 ml 04/23/19 15:37 04/23/19 16:14 Xylocaine-Mpf 1% INJECT 04/23/19 15:38 Not Given ONETIME ONE Departure - Departure Time of Disposition: 16:36 Disposition: Home, Self-Care 01 Condition: Good Clinical Impression: Injury of left index finger - Discharge Information Referrals: PCP,Unknown [Primary Care Provider] - Forms: ED Department Discharge Additional Instructions: The following information is given to patients seen in the emergency department who are being discharged to home. This information is to outline your options for follow-up care. We provide all patients seen in our emergency department with a follow-up referral. The need for follow-up, as well as the timing and circumstances, are variable depending upon the specifics of your emergency department visit. If you don't have a primary care physician on staff, we will provide you with a referral. We always advise you to contact your personal physician following an emergency department visit to inform them of the circumstance of the visit and for follow-up with them and/or the need for any referrals to a consulting specialist. The emergency department will also refer you to a specialist when appropriate. This referral assures that you have the opportunity for follow-up care with a specialist. All of these measure are taken in an effort to provide you with optimal care, which includes your follow-up. Under all circumstances we always encourage you to contact your private physician who remains a resource for coordinating your care. When calling for follow-up care, please make the office aware that this follow-up is from your recent emergency room visit. If for any reason you are refused follow-up, please contact the [facility] Emergency Department at and asked to speak to the emergency department charge nurse. [facility] [address] [place] [id number] [facility] [address] [place] [id number] Ice, elevate and alternate tylenol and motrin as needed Follow up with primary care provider Return to ED as needed as discussed - My Orders Last 24 Hours: My Active Orders 04/23/19 15:37 Vaccines to be Administered [RC] PER UNIT ROUTINE - Assessment/Plan Last 24 Hours: My Active Orders 04/23/19 15:37 Vaccines to be Administered [RC] PER UNIT ROUTINE
[2019-04-23] MEDS ORDERED: Diphtheria,Pertussis(Acell),Tetanus Vaccine 0.5 ML Syringe IM ONE (15:37)
[2019-04-23] MEDS ORDERED: Bacitracin Oint 1 GM U/D Packet TOP ONE (16:31)
--- NOTE | 2019-04-23 16:35 | CR ---
Left 2nd finger: Three views centered to the left 2nd finger were obtained. Comparison: Previous left hand study of 02/13/17. Slight soft tissue injury is noted distally. No fracture, dislocation or other bony abnormality is seen. Impression: Soft tissue injury. No bony abnormality is seen on left second finger study. Diagnostic code #2 MTDD
[2019-04-23 17:07] VITALS: BP 148/98; PULSE 90
== END 2019-04-23 17:05 | disposition home or self-care (01) ==
LOC: MW.ED 15:25
DX: S61.311A Laceration without foreign body of left index finger with damage to nail, initial encounter (principal); F31.9 Bipolar disorder, unspecified; Z79.899 Other long term (current) drug therapy; Z23 Encounter for immunization; W27.0XXA Contact with workbench tool, initial encounter
CPT/HCPCS: 73140-26-F1; 73140-F1; 90471; 90715; 99283; 99283-25

== ENCOUNTER 2019-04-25 20:09 | Emergency (ER) | payer BC ==
[2019-04-25] MEDS ORDERED: Ketorolac 30 MG/ML SDV IVPUSH ONE (20:41)
[2019-04-25] MEDS ORDERED: Sodium Chloride 0.9% 10 ML Syringe FLUSH PRN (20:41)
[2019-04-25] MEDS ORDERED: Sodium Chloride 0.9% 2.5 ML Syringe FLUSH PRN (20:41)
[2019-04-25] MEDS ORDERED: Ondansetron 4 MG/2 ML SDV IVPUSH ONE (20:41)
[2019-04-25] MEDS ORDERED: Sodium Chloride 0.9% 1,000 ML IV ONE (20:41)
--- NOTE | 2019-04-25 20:46 | EDM.PDOC ---
ED HPI GENERAL MEDICAL PROBLEM - General Chief Complaint: General Stated Complaint: PT HAVING REACTION TO MEDICINE Time Seen by Provider: 04/25/19 20:29 - History of Present Illness INITIAL COMMENTS - FREE TEXT/NARRATIVE: HISTORY AND PHYSICAL: History of present illness: The patient is a 34-year-old male with a history of bipolar disorder for which he takes several medications and follows with Zuleyka Best at [facility] and was recently started on Chantix, today is day 12, and presents with myalgias generalized lays nausea feeling dizzy and lightheaded without passing out or blacking out that started today. The patient was seen here 2 days ago for a laceration of the finger which was addressed and he received his tetanus shot in his right deltoid. He says that he is concerned about a reaction to the tetanus shot. He was not given any other medications on that visit. He says that his right deltoid feels sore but that he is having myalgias all over. He has not had a fever cough chest pain or shortness of breath and he admits he has not been eating and drinking very much today. He's had no urinary complaints no diarrhea and no abdominal pain. He has no head neck or back pain specifically but says that everything is hurting him. Review of systems: As per history of present illness and below otherwise all systems reviewed and negative. Past medical history: As per history of present illness and as reviewed below otherwise noncontributory. Surgical history: As per history of present illness and as reviewed below otherwise noncontributory. Social history: No reported history of drug or alcohol abuse. Family history: As per history of present illness and as reviewed below otherwise noncontributory. Physical exam: General: Well-developed well-nourished man who is nontoxic and speaking clearly without hoarse or muffled voice or breathlessness. Vital signs were noted by me. He has overall unwell appearance but he is cooperative and interactive. HEENT: Atraumatic, normocephalic, pupils reactive, negative for conjunctival pallor or scleral icterus, mucous membranes moist, throat clear, neck supple, nontender, trachea midline. There is no cervical adenopathy or nuchal rigidity but there is some tenderness with palpation of the trapezius and paraspinals bilaterally as well as the sternocleidomastoid without swelling or skin changes. Lungs: Clear to auscultation, breath sounds equal bilaterally, chest nontender. Heart: S1S2, regular rhythm slightly tachycardic rate on my evaluation but no overt murmurs Abdomen: Soft, nondistended, nontender. NABS Negative for costovertebral tenderness. Pelvis: Stable nontender. Genitourinary: Deferred. Rectal: Deferred. Extremities: Atraumatic, with full range of motion of all extremities but there is some mild tenderness with palpation of the right deltoid area without any erythema swelling or soft tissue changes from the tetanus shot in this area, negative for cords or calf pain. Neurovascular unremarkable. At the left index finger the wound is healing and there is no sinus drainage swelling or erythema Neuro: Awake, alert, oriented. Cranial nerves II through XII unremarkable. Cerebellum unremarkable. Motor and sensory unremarkable throughout. Exam nonfocal. Diagnostics: CBC CMP magnesium level EKG UA with reflex influenza swab Therapeutics: IV fluids Toradol Zofran and family at bedside are aware of all testing results and that they are within normal limits and I've advised them to connect with your provider at [facility] to discuss the Chantix to see if this potentially is a side effect of taking that. I explained to them that his workup here is within normal limits and that he should rest continue with hydration and use over-the- counter ibuprofen for aches and pains. Impression: Generalized weakness and malaise, lightheadedness Definitive disposition and diagnosis as appropriate pending reevaluation and review of above. headache Pain Score (Numeric/FACES): 10 - Related Data Allergies Allergy/AdvReac Type Severity Reaction Status Date / Time No Known Allergies Allergy Verified 04/23/19 15:44 Home Meds: Home Meds Divalproex Sodium 500 mg PO BID 11/10/18 [History] DULoxetine HCl [Cymbalta] 90 mg PO DAILY 04/25/19 [History] QUEtiapine [SEROquel] 50 mg PO BEDTIME 04/25/19 [History] Varenicline Tartrate [Chantix] 0.5 mg PO DAILY 04/25/19 [History] Past Medical History - Past Health History Medical/Surgical History: Denies Medical/Surgical History HEENT History: Reports: None Cardiovascular History: Reports: None Respiratory History: Reports: None Gastrointestinal History: Reports: None Genitourinary History: Reports: None Musculoskeletal History: Reports: Other (See Below) Other Musculoskeletal History: knee injury Neurological History: Reports: None Psychiatric History: Reports: ADHD, Bipolar Endocrine/Metabolic History: Reports: None Hematologic History: Reports: None Immunologic History: Reports: None Oncologic (Cancer) History: Reports: None Dermatologic History: Reports: None - Infectious Disease History Infectious Disease History: Reports: None - Past Surgical History Head Surgeries/Procedures: Reports: None HEENT Surgical History: Reports: None, Other (See Below) Other HEENT Surgeries/Procedures: Jaw pain Cardiovascular Surgical History: Reports: None Male Surgical History: Reports: None Oncologic Surgical History: Reports: None Social & Family History - Family History Family Medical History: Noncontributory - Tobacco Use Smoking Status *Q: Former Smoker Used Tobacco, but Quit: Yes Month/Year Tobacco Last Used: 03/2019 - Caffeine Use Caffeine Use: Reports: Coffee, Soda, Tea - Recreational Drug Use Recreational Drug Use: No ED ROS GENERAL - Review of Systems Review Of Systems: ROS reveals no pertinent complaints other than HPI. ED EXAM, GENERAL - Physical Exam Exam: See Below (see Dictation) Course - Vital Signs Last Recorded V/S: Last Vital Signs Temp 36.8 C 04/25/19 20:33 Pulse 115 H 04/25/19 20:33 Resp 18 04/25/19 20:33 BP 159/107 H 04/25/19 20:33 Pulse Ox 93 L 04/25/19 20:33 - Orders/Labs/Meds Orders: Active Orders 24 hr Category Date Time Status EKG Documentation Completion [RC] STAT Care 04/25/19 20:42 Active Sodium Chloride 0.9% [Saline Flush] Med 04/25/19 20:41 Active 10 ml FLUSH ASDIRECTED PRN Sodium Chloride 0.9% [Saline Flush] Med 04/25/19 20:41 Active 2.5 ml FLUSH ASDIRECTED PRN Saline Lock Insert [OM.PC] Stat Oth 04/25/19 20:41 Ordered Medication Orders Sodium Chloride (Saline Flush) 10 ml FLUSH ASDIRECTED PRN PRN Reason: Keep Vein Open Last Admin: 04/25/19 21:13 Dose: 10 ml Sodium Chloride (Saline Flush) 2.5 ml FLUSH ASDIRECTED PRN PRN Reason: Keep Vein Open Last Admin: 04/25/19 21:13 Dose: 2.5 ml Labs: Laboratory Tests 04/25/19 04/25/19 04/25/19 Range/Units 21:00 21:00 21:10 WBC 9.77 (4.0-11.0) K/uL RBC 5.66 (4.50-5.90) M/uL Hgb 17.2 H (13.0-17.0) g/dL Hct 49.3 (38.0-50.0) % MCV 87.1 (80.0-98.0) fL MCH 30.4 (27.0-32.0) pg MCHC 34.9 (31.0-37.0) g/dL RDW Std Deviation 42.4 (28.0-62.0) fl RDW Coeff of Brinda 13 (11.0-15.0) % Plt Count 255 (150-400) K/uL MPV 10.20 (7.40-12.00) fL Neut % (Auto) 56.0 (48.0-80.0) % Lymph % (Auto) 28.1 (16.0-40.0) % [place] % (Auto) 13.9 (0.0-15.0) % Eos % (Auto) 1.4 (0.0-7.0) % Baso % (Auto) 0.6 (0.0-1.5) % Neut # (Auto) 5.5 (1.4-5.7) K/uL Lymph # (Auto) 2.8 H (0.6-2.4) K/uL [place] # (Auto) 1.4 H (0.0-0.8) K/uL Eos # (Auto) 0.1 (0.0-0.7) K/uL Baso # (Auto) 0.1 (0.0-0.1) K/uL Nucleated RBC % 0.0 /100WBC Nucleated RBCs # 0 K/uL Sodium 134 L (136-148) mmol/L Potassium 4.2 (3.5-5.1) mmol/L Chloride 100 (98-107) mmol/L Carbon Dioxide 23.4 (21.0-32.0) mmol/L BUN 15 (7.0-18.0) mg/dL Creatinine 1.1 (0.8-1.3) mg/dL Est Cr Clr Drug Dosing 103.86 mL/min Estimated GFR (MDRD) > 60.0 ml/min Glucose 116 H (74-106) mg/dL Calcium 9.8 (8.5-10.1) mg/dL Magnesium 2.2 (1.8-2.4) mg/dL Total Bilirubin 0.3 (0.2-1.0) mg/dL AST 38 H (15-37) IU/L ALT 56 (14-63) IU/L Alkaline Phosphatase 78 (46-116) U/L Total Protein 8.3 H (6.4-8.2) g/dL Albumin 4.1 (3.4-5.0) g/dL Globulin 4.2 H (2.6-4.0) g/dL Albumin/Globulin Ratio 1.0 (0.9-1.6) Urine Color YELLOW Urine Appearance CLEAR Urine pH 6.0 (5.0-8.0) Ur Specific [place] 1.025 (1.001-1.035) Urine Protein NEGATIVE (NEGATIVE) mg/dL Urine Glucose (UA) NEGATIVE (NEGATIVE) mg/dL Urine Ketones NEGATIVE (NEGATIVE) mg/dL Urine Occult Blood TRACE-INTACT H (NEGATIVE) Urine Nitrite NEGATIVE (NEGATIVE) Urine Bilirubin NEGATIVE (NEGATIVE) Urine Urobilinogen 0.2 (<2.0) EU/dL Ur Leukocyte Esterase NEGATIVE (NEGATIVE) Urine RBC 0-1 (0-2/HPF) Urine WBC 0-1 (0-5/HPF) Ur Epithelial Cells NOT SEEN (NONE-FEW) Urine Bacteria RARE (NEGATIVE) Meds: Medications Generic Name Dose Route Start Last Admin Trade Name Isa PRN Reason Stop Dose Admin Sodium Chloride 10 ml 04/25/19 20:41 04/25/19 21:13 Saline Flush FLUSH 10 ml ASDIRECTED PRN Administration Keep Vein Open Sodium Chloride 2.5 ml 04/25/19 20:41 04/25/19 21:13 Saline Flush FLUSH 2.5 ml ASDIRECTED PRN Administration Keep Vein Open Discontinued Medications Generic Name Dose Route Start Last Admin Trade Name Isa PRN Reason Stop Dose Admin Sodium Chloride 1,000 mls @ 999 mls/hr 04/25/19 20:41 04/25/19 21:09 Normal Saline IV 04/25/19 21:41 999 mls/hr STAT ONE Administration Ketorolac Tromethamine 30 mg 04/25/19 20:41 04/25/19 21:11 Toradol IVPUSH 04/25/19 20:42 30 mg ONETIME ONE Administration Ondansetron HCl 4 mg 04/25/19 20:41 04/25/19 21:10 Zofran IVPUSH 04/25/19 20:42 4 mg ONETIME ONE Administration Departure - Departure Time of Disposition: 21:51 Disposition: Home, Self-Care 01 Condition: Good Clinical Impression: Generalized weakness, Myalgia, Lightheadedness - Discharge Information Referrals: PCP,None [Primary Care Provider] - Forms: ED Department Discharge Additional Instructions: The following information is given to patients seen in the emergency department who are being discharged to home. This information is to outline your options for follow-up care. We provide all patients seen in our emergency department with a follow-up referral. The need for follow-up, as well as the timing and circumstances, are variable depending upon the specifics of your emergency department visit. If you don't have a primary care physician on staff, we will provide you with a referral. We always advise you to contact your personal physician following an emergency department visit to inform them of the circumstance of the visit and for follow-up with them and/or the need for any referrals to a consulting specialist. The emergency department will also refer you to a specialist when appropriate. This referral assures that you have the opportunity for followup care with a specialist. All of these measure are taken in an effort to provide you with optimal care, which includes your followup. Under all circumstances we always encourage you to contact your private physician who remains a resource for coordinating your care. When calling for followup care, please make the office aware that this follow-up is from your recent emergency room visit. If for any reason you are refused follow-up, please contact the [facility] emergency department at and ask to speak to the emergency department charge nurse. [address] [place] [address] Push hydration and avoid caffeinated products and rest. Monitor your symptoms and use [id number] ibuprofen/Motrin for pain and aches as this will help with any inflammation and discomfort. You can take 600 mg every 6 hours or 800 mg every 8 hours. You can also add Tylenol as you choose. Please connect with your provider at [facility] to discuss the Chantix you are taking and to see if you should continue taking it. Return to ER as needed and as discussed - My Orders Last 24 Hours: My Active Orders 04/25/19 20:41 Sodium Chloride 0.9% [Saline Flush] 10 ml FLUSH ASDIRECTED PRN Sodium Chloride 0.9% [Saline Flush] 2.5 ml FLUSH ASDIRECTED PRN Saline Lock Insert [OM.PC] Stat 04/25/19 20:42 EKG Documentation Completion [RC] STAT - Assessment/Plan Last 24 Hours: My Active Orders 04/25/19 20:41 Sodium Chloride 0.9% [Saline Flush] 10 ml FLUSH ASDIRECTED PRN Sodium Chloride 0.9% [Saline Flush] 2.5 ml FLUSH ASDIRECTED PRN Saline Lock Insert [OM.PC] Stat 04/25/19 20:42 EKG Documentation Completion [RC] STAT
[2019-04-25 21:36] LABS: BLOOD UREA NITROGEN,BUN 15 mg/dL (7.0-18.0); CARBON DIOXIDE,CO2 23.4 mmol/L (21.0-32.0); CHLORIDE,CL 100 mmol/L (98-107); GLUCOSE RANDOM 116 mg/dL (74-106); POTASSIUM,K 4.2 mmol/L (3.5-5.1); SODIUM,NA 134 mmol/L (136-148)
[2019-04-25 22:10] VITALS: BP 131/84; PULSE 94
== END 2019-04-25 22:11 | disposition home or self-care (01) ==
LOC: MW.ED 20:09
DX: M79.10 Myalgia, unspecified site (principal); R42 Dizziness and giddiness; R53.1 Weakness; R53.81 Other malaise; F90.9 Attention-deficit hyperactivity disorder, unspecified type; F31.9 Bipolar disorder, unspecified; Z79.899 Other long term (current) drug therapy; Z87.891 Personal history of nicotine dependence
CPT/HCPCS: 36415; 80053; 81001; 83735; 85025; 87804; 93005; 96361; 96374; 96375; 99284; J1885; J2405; J7040

== ENCOUNTER 2021-12-09 00:38 | Emergency (ER) | payer SELFPAY ==
[2021-12-09] MEDS ORDERED: Amoxicillin/Clavulanate K 875-125 MG Tab PO ONE (00:55)
[2021-12-09 01:06] VITALS: BP 164/111; PULSE 91
== END 2021-12-09 01:06 | disposition home or self-care (01) ==
LOC: MW.ED 00:38
DX: K04.7 Periapical abscess without sinus (principal); Z79.899 Other long term (current) drug therapy
CPT/HCPCS: 99283; A9270

== ENCOUNTER 2023-12-28 07:50 | Emergency (ER) | payer BC ==
[2023-12-28 08:05] VITALS: BP 148/105; PULSE 84
== END 2023-12-28 08:37 | disposition home or self-care (01) ==
LOC: MW.ED 07:50
DX: B02.9 Zoster without complications (principal); F17.210 Nicotine dependence, cigarettes, uncomplicated
CPT/HCPCS: 99282

== ENCOUNTER 2024-02-08 14:37 | Emergency (ER) | payer BC, MEDICAID ==
[2024-02-08 15:23] VITALS: BP 142/93; PULSE 94
[2024-02-08] MEDS: Methocarbamol 750 MG Tab PO STA (16:13)
[2024-02-08] MEDS: Lidocaine 4% 1 each Patch TOP STA (16:13)
[2024-02-08 16:20] LABS: BASOPHILS ABSOLUTE AUTO 0.09 K/uL (0.00-0.20); BASOPHILS PERCENT AUTO 0.9 % (0.0-1.0); EOSINOPHILS ABSOLUTE AUTO 0.27 K/uL (0.00-0.45); EOSINOPHILS PERCENT AUTO 2.7 % (0.0-6.0); HEMATOCRIT 48.2 % (42.0-52.0); HEMOGLOBIN 16.4 g/dL (14.0-18.0); IMMATURE GRAN ABSOLUTE AUTO 0.04 K/uL (0.00-0.05); IMMATURE GRAN PERCENT AUTO 0.4 % (0.0-0.4); LYMPHOCYTES ABSOLUTE AUTO 3.14 K/uL (1.00-4.80); LYMPHOCYTES PERCENT AUTO 31.8 % (24.0-44.0); MEAN CORPUSCULAR HEMOGLOBIN 29.5 pg (28.0-32.0); MEAN CORPUSCULAR VOLUME 86.8 fL (83.0-99.0); MEAN PLATELET VOLUME 9.5 fL (9.4-12.4); MONOCYTES ABSOLUTE AUTO 1.15 K/uL (0.00-0.80); MONOCYTES PERCENT AUTO 11.6 % (0.0-8.0); NEUTROPHILS ABSOLUTE AUTO 5.19 K/uL (1.80-7.70); NEUTROPHILS PERCENT AUTO 52.6 % (41.0-71.0); PLATELET COUNT,PLT 270 K/uL (150-400); RED BLOOD CELL COUNT 5.55 M/uL (4.52-5.90); WHITE BLOOD CELL COUNT,WBC 9.88 K/uL (3.9-11.3)
[2024-02-08 16:40] LABS: ACETAMINOPHEN <2.0 ug/mL; BLOOD UREA NITROGEN,BUN 20 mg/dL (7.0-18.0); CALCIUM 9.3 mg/dL (8.5-10.1); CARBON DIOXIDE,CO2 25.4 mmol/L (21.0-32.0); CHLORIDE,CL 105 mmol/L (98-107); CREATININE 1.3 mg/dL (0.8-1.3); EST CRCL DRUG DOSING (CG) 82.06 mL/min; ESTIMATED GFR 72 mL/min (>60); GLUCOSE RANDOM 94 mg/dL (74-106); POTASSIUM,K 4.6 mmol/L (3.5-5.1); SALICYLATE 3.6 mg/dL (0.0-20.0); SODIUM,NA 140 mmol/L (136-148)
== END 2024-02-08 17:20 | disposition home or self-care (01) ==
LOC: MW.ED 14:37
DX: M67.813 Other specified disorders of tendon, right shoulder (principal)
CPT/HCPCS: 36415; 73030; 80048; 80143; 80179; 85025; 99283; A9270

== ENCOUNTER 2024-03-16 23:40 | Emergency (ER) | payer BC, MEDICAID ==
[2024-03-17 01:26] VITALS: BP 140/99; PULSE 98
== END 2024-03-17 01:26 | disposition home or self-care (01) ==
LOC: MW.ED 23:40
DX: M25.511 Pain in right shoulder (principal)
CPT/HCPCS: 99283